=== PATIENT | male | born 1995 | race Caucasian/White ===

== ENCOUNTER 2020-11-04 00:26 | Emergency (ER) | payer MEDICAID, OTHER, SELFPAY ==
[~2020-11-04] VITALS: Ht 170.2 cm; Wt 145.4 kg
--- NOTE | 2020-11-04 06:58 | REPVR ---
PROCEDURE INFORMATION: Exam: CT Left Lower Extremity Without Contrast, Ankle Exam date and time: 11/04/2020 5:28 AM Age: 25 years old Clinical indication: Injury or trauma; Fall; Sprain or strain; Ankle; Left; Additional info: Trauma, ? os trigonum FX on XR TECHNIQUE: Imaging protocol: CT of the Left lower extremity without contrast was performed. Exam focused on the ankle. Radiation optimization: All CT scans at this facility use at least one of these dose optimization techniques: automated exposure control; mA and/or kV adjustment per patient size (includes targeted exams where dose is matched to clinical indication); or iterative reconstruction. COMPARISON: CR Ankle, complete LEFT 11/04/2020 12:42 AM FINDINGS: Bones/joints: Small calcaneal spur. The distal tibia and fibula are intact. Ankle mortise is maintained. Os trigonum present. Curvilinear calcification adjacent to the posterior margin of accessory ossicle which could reflect cortical avulsion fracture. Ankle joint effusion. Soft tissues: Normal. IMPRESSION: 1. Suspicion cortical avulsion fracture of posterior margin os trigonum accessory ossicle. 2. Calcaneal spur . Electronically signed by: Sharron Stevens On 11/04/2020 06:58:51 AM
[2020-11-04 07:44] VITALS: BP 144/86
--- NOTE | 2020-11-23 08:01 | REP ---
INDICATION: injury COMPARISON: None. TECHNIQUE: AP, lateral, bilateral oblique views. FINDINGS: No definite acute fracture or dislocation is appreciated. Lateral view cannot exclude small fracture along the posterior aspect the os trigonum. Surrounding soft tissues are normal. Ankle mortise appears intact. No subcutaneous emphysema or foreign body. IMPRESSION: As above. Correlation is required. <Electronically signed by Moreno Ji > 11/23/20 [id number]
== END 2020-11-04 09:29 | disposition home or self-care (01) ==
LOC: M ED 00:26
DX: S92.155A Nondisplaced avulsion fracture (chip fracture) of left talus, initial encounter for closed fracture (principal); V03.00XA Pedestrian on foot injured in collision with car, pick-up truck or van in nontraffic accident, initial encounter; Y92.9 Unspecified place or not applicable; Y93.9 Activity, unspecified; Y99.0 Civilian activity done for income or pay; M77.32 Calcaneal spur, left foot; E66.9 Obesity, unspecified